=== PATIENT | female | born 1950 | race Caucasian/White ===

== ENCOUNTER 2023-06-11 21:00 | Emergency (ER) | payer MEDICARE, SELFPAY ==
--- NOTE | 2023-06-11 21:00 | RT.EKG_ITS ---
APPROVED REPORT Exam: Resting ECG Reason for Exam: Chest pressure Patient Location: E HR:78 bpm ECG Measurements Heart Rate 78 AXIS NJ 146 P 37 QRSd 69 QRS 51 QT 377 T 43 QTc 421 Conclusion Sinus rhythm..., V-rate 60- 99 Atrial premature complex...SV complex w/ short R-R interval No ST segment or T wave abnormalities to suggest occlusive AK
[2023-06-11 21:07] VITALS: BP 144/76; PULSE 84; RESP 18; TEMP 37; O2SAT 96
--- NOTE | 2023-06-11 21:15 | DI.RAD_ITS ---
Exam(s) XR PORTABLE CHEST AP EXAM: XR PORTABLE CHEST AP CLINICAL HISTORY: chest pain TECHNIQUE: 2D digital imaging was performed of the chest. One image was obtained. An AP view was ob tained. COMPARISON: No exams were available for comparison FINDINGS: MEDIASTINUM: Normal. HEART: Normal. There is a cardiac monitoring device over the left chest wall. PULMONARY VASCULATURE: Normal. LUNGS: The lungs appear hyperinflated. No focal consolidation. PLEURAL SPACE: No pleural effusion or pneumothorax. BONE:Within normal limits for the patient's age. OTHER FINDINGS:There are surgical clips projected over the right lateral chest wall. IMPRESSION: No focal consolidation. DATA REPOSITORY: RADIATION DOSE DELIVERED:
--- NOTE | 2023-06-11 21:24 | ED.GENADUL_ITS ---
Discharge Plan Disposition Condition: Stable Discharge Details Chief Complaint: SOB Clinical Impression: COVID-19, Chest pain Primary Care Provider: Unknown,Unknown ED Provider: Lea Campbell Home Meds and New Rx's Prescriptions: No Action No Known Home Meds Discharge Instructions Instructions: Chest Pain (ED), Viral Syndrome (ED) Additional Instructions: drink 6-8 glasses of water daily to stay well hydrated. continue over the counter medication as directed for symptoms Referrals: Unknown,Unknown [Primary Care Provider] - (follow up with primary care provider) Medical Decision Making Patient presents with symptoms of chest pain/pressure and with upper respiratory symptoms starting Friday. She was COVID-positive. General shows no respiratory distress no coarse breath sounds and oxygen sats of 96% on room air she is afebrile with stable blood pressure and heart rate in the 80s. Will obtain IV access get chest x-ray to rule out pneumonia. Will obtain routine lab including CBC CMP BNP and D-dimer. Her EKG shows no acute ST segment changes. Initial labs are unremarkable with normal white count troponin BNP and age corrected D-dimer. Chest x-ray shows no infiltrates or consolidations. She has remained monitored in the emergency department with room air sats in the high 90s. She was given aspirin 324 mg to chew. Remains hemodynamically stable at this time. Doubt acute coronary syndrome but should repeat troponin in 3 hours. Report and care of patient will be handed off to Dr. Mccord for final diagnosis and disposition. Medical Records Medical records reviewed: Yes I reviewed the patient's medical records. Imaging Data Radiologic Study: Imaging: X-Ray Radiologist's impression: Exam(s) PROCEDURE INFORMATION: Exam: XR Chest Exam date and time: 06/11/2023 21:29 Age: 72 years old Clinical indication: Chest pressure; Patient HX: Chest pain, covid+ TECHNIQUE: Imaging protocol: Radiologic exam of the chest. Views: 1 view. COMPARISON: No relevant prior studies available. FINDINGS: Tubes, catheters and devices: Cardiac monitoring device projects over the left chest wall. Lungs: Mild hyperinflation without airspace consolidation. Pleural spaces: No pleural effusion. No pneumothorax. Heart/Mediastinum: No cardiomegaly. Bones/joints: No acute fracture. Soft tissues: Right chest wall surgical clips. IMPRESSION: Mild hyperinflation without airspace consolidation. Dictated and Authenticated by: Mari Neri MD. Lab Data Lab results reviewed: Yes I reviewed the patient's lab results. Lab results narrative: Laboratory Tests Range/Units 06/11/23 21:28 WBC (4.4-10.8) 10^3/uL 6.99 RBC (3.93-5.22) 10^6/uL 4.53 Hgb (11.2-15.7) g/dL 12.7 Hct (36.0-46.0) % 39.4 MCV (80-95) fL 87 MCH (27.0-33.0) pg 28.0 MCHC (32.0-36.0) % 32.2 RDW (11.7-14.6) % 13.0 Plt Count (130-400) 10^3/uL 265 MPV (8.0-11.0) fL 9.7 Immature Gran % 0.3 Neutrophils % 60.6 Lymphocytes % 20.6 Monocytes % 14.0 Eosinophils % 4.1 Basophils % 0.4 Nucleated RBC % (0.0-0.3) % 0.0 Absolute Neutrophils (1.2-6.7) 10^3/uL 4.23 Absolute Lymphocytes (1.2-3.4) 10^3/uL 1.44 Absolute Monocytes (0.1-0.8) 10^3/uL 0.98 H Absolute Eosinophils (0.0-0.7) 10^3/uL 0.29 Absolute Basophils (0.0-0.2) 10^3/uL 0.03 D-Dimer (<500) ng/mlFEU 647 H Sodium (136-145) mmol/L 137 Potassium (3.5-5.1) mmol/L 3.5 Chloride (98-107) mmol/L 104 Carbon Dioxide (21.0-32.0) mmol/L 29.0 Anion Gap (3-11) mmol/L 4.0 BUN (7-18) mg/dL 20 H Creatinine (0.55-1.02) mg/dL 0.9 Est GFR (CKD-EPI 2020) (mL/min/1.73m2) 67.08 Glucose (74-106) mg/dL 108 H Calcium (8.5-10.1) mg/dL 9.0 Magnesium (1.8-2.4) mg/dL 2.0 Total Bilirubin (0.2-1.0) mg/dL 0.2 AST (15-37) U/L 22 ALT (14-59) U/L 20 Alkaline Phosphatase (46-116) U/L 72 Troponin I (<or=60) ng/L < 50 NT-Pro-B Natriuret Pep (<300) pg/mL 205 Total Protein (6.4-8.2) g/dL 7.0 Albumin (3.4-5.0) g/dL 3.4 HPI General Mode of arrival: ambulatory . Date/Time Provider Initiated Documentation: 06/11/23 21:15 . Limitations to Documentation: no limitations . Information obtained by: patient . HPI Narrative: Presents for evaluation of chest pressure. Started feeling upper respiratory viral infection symptoms Friday has tested positive for COVID states she has had similar symptoms to this in the past has been able to tolerate p.o. No respiratory distress Related Data Home Medications Medication Instructions Recorded Confirmed Unknown [No Known Home Meds] 06/11/23 06/11/23 Allergies Allergy/AdvReac Type Severity Reaction Status Date / Time feline Allergy Intermediate Rhinitis, Uncoded 06/11/23 21:11 sneezing General Stated Complaint: SOB MOOSE: 3 Review of Systems All systems reviewed & are unremarkable except as noted in HPI and below PFSH All Active Problems (Updated 06/11/23 @ 22:20 by Lea Campbell NP) Chest pain (Acute) COVID-19 (Acute) Surgical History Endometrial Biopsy (~2005) NEG Breast, Lumpectomy RIGHT BREAST Family History Mother , polio at age 28. Poliosis Father Heart disease with bypass surgery Sister No problems noted. Grandfather Essential hypertension Grandfather , MVA at age 60. No problems noted. Grandmother Essential hypertension Stroke Grandmother No problems noted. Social History Smoking/Tobacco Use Status: Never Smoking risk assessment performed?: Yes Alcohol Intake: current Alcohol Intake frequency: holidays/special occasions only Substance use type: does not use Do you feel safe at home: Yes Do you feel safe in your relationship?: Yes Exam Const General: cooperative, comfortable, no acute distress and frail appearing Nutritional Appearance: thin Orientation: alert, awake and oriented x3 HENMT Head: normal to inspection, normocephalic and atraumatic Face and sinus: normal facial exam Mouth: moist mucous membranes abnormal (slightly dry) Throat: posterior oropharynx normal Eyes General: appearance normal, both eyes and all related structures Resp Effort & Inspection: normal respiratory effort Auscultation: clear to auscultation bilaterally and diminished lung sounds bilaterally Cardio Rate: regular rate Rhythm: regular rhythm GI Inspection: normal to inspection Palpation: soft Skin General skin exam: dry skin and turgor decreased Lesions: no lesions Neuro General: patient alert, patient awake and patient oriented x3 Extrem General: normal to inspection, full ROM and edema (At baseline) Laterality: bilateral Course Vital Signs Vital signs: Vital Signs Temperature 37.0 C 06/11/23 21:07 Pulse 84 06/11/23 21:07 Respiratory Rate 18 06/11/23 21:07 Blood Pressure 144/76 H 06/11/23 21:07 Pulse Oximetry 96 06/11/23 21:07 Temperature 37.0 C 06/11/23 21:07 Temperature Source Skin 06/11/23 21:07 Pulse 84 06/11/23 21:07 Respiratory Rate 18 06/11/23 21:07 Respiratory Effort Normal 06/11/23 21:10 Blood Pressure 144/76 H 06/11/23 21:07 Blood Pressure Position Sitting 06/11/23 21:07 Pulse Oximetry 96 06/11/23 21:07 Oxygen Delivery Method Room Air 06/11/23 21:07 Oxygen Flow Rate 0 06/11/23 21:07 Sign Out Sign Out Data: Sign Out Comment: COVID-positive patient presents with reports of chest pressure. Initial EKG and troponin are unremarkable. She is oxygenating in the high 90s on room air and is hemodynamically stable. Her chest x-ray with no infiltrates or consolidation. Awaiting delta troponin and repeat EKG at midnight anticipated discharge to home with no medication changes or new medications Last updated by Lea Campbell NP at 06/11/23 22:15
[2023-06-11 21:34] LABS: Abs Immature Grans 0.02 10^3/uL (0.0-0.06); Absolute Basophil Count 0.03 10^3/uL (0.0-0.2); Absolute Eosinophil Count 0.29 10^3/uL (0.0-0.7); Absolute Lymphocyte Count 1.44 10^3/uL (1.2-3.4); Absolute Monocyte Count 0.98 10^3/uL (0.1-0.8); Absolute Neutrophil Count 4.23 10^3/uL (1.2-6.7); Basophils % 0.4; Eosinophils % 4.1; HCT 39.4 % (36.0-46.0); HGB 12.7 g/dL (11.2-15.7); Immature Grans % 0.3; Lymphocytes % 20.6; MCHC 32.2 % (32.0-36.0); MCV 87 fL (80-95); MPV 9.7 fL (8.0-11.0); Neutrophils % 60.6; Platelet Count 265 10^3/uL (130-400); RBC 4.53 10^6/uL (3.93-5.22); RDW-SD 41.2 fL; WBC 6.99 10^3/uL (4.4-10.8)
[2023-06-11 21:53] LABS: ALT 20 U/L (14-59); AST 22 U/L (15-37); Albumin 3.4 g/dL (3.4-5.0); Alkaline Phosphatase 72 U/L (46-116); BUN 20 mg/dL (7-18); Bilirubin, Total 0.2 mg/dL (0.2-1.0); CREATININE 0.9 mg/dL (0.55-1.02); Chloride 104 mmol/L (98-107); Estimated GFR 67.08 (mL/min/1.73m2); Glucose 108 mg/dL (74-106); Potassium 3.5 mmol/L (3.5-5.1); Sodium 137 mmol/L (136-145); Troponin I < 50 ng/L (<or=60)
[2023-06-11 21:57] LABS: NT-proBNP 205 pg/mL (<300)
[2023-06-11] MEDS: Aspirin 81 MG CHEW 324 MG CH (21:57)
--- NOTE | 2023-06-11 22:06 | DI.VRAD_ITS ---
PROCEDURE INFORMATION: Exam: XR Chest Exam date and time: 06/11/2023 21:29 Age: 72 years old Clinical indication: Chest pressure; Patient HX: Chest pain, covid+ TECHNIQUE: Imaging protocol: Radiologic exam of the chest. Views: 1 view. COMPARISON: No relevant prior studies available. FINDINGS: Tubes, catheters and devices: Cardiac monitoring device projects over the left chest wall. Lungs: Mild hyperinflation without airspace consolidation. Pleural spaces: No pleural effusion. No pneumothorax. Heart/Mediastinum: No cardiomegaly. Bones/joints: No acute fracture. Soft tissues: Right chest wall surgical clips. IMPRESSION: Mild hyperinflation without airspace consolidation. Dictated and Authenticated by: Mari Neri MD. Ordering:JORDIN Tate MD
[2023-06-11 22:07] LABS: D-Dimer 647 ng/mlFEU (<500)
[2023-06-12 00:24] LABS: Troponin I < 50 ng/L (<or=60)
--- NOTE | 2023-06-12 01:05 | W.EDPROG ---
Date of service: 06/12/23 Time of Service: 01:08 Medical Decision Making Patient was signed out to me by Lea Cmapbell. Please refer to her HPI, physical exam, assessment and plan. At time of signout we are pending repeat troponin. Repeat troponin has returned and is normal. Patient feels well. Chest x-ray unremarkable. Laboratory work-up otherwise stable. Patient stable for discharge. Symptoms inconsistent with massive PE or ACS. Discussed options of Paxlovid for her COVID treatment. Discussed risks and benefits of medication, as well as risks and benefits of the current timing with her current illness status. Through shared decision-making process patient would like to proceed with Paxlovid treatment. We will give the Paxlovid starter pack year. Patient otherwise stable for discharge. Discussed red flags for which to return. I have extensively reviewed the treatment plan and discharge instructions with the patient. I have addressed all patient concerns at this time. The patient was made aware of what symptoms to monitor for that would warrant a return to the emergency department. Discussed the plan with the patient, they demonstrate verbal understanding and agreement with our assessment and plan at this time. The documentation in this chart was dictated using [employer] dictation software. Please excuse any dictation errors. Sign Out Sign Out Data: Sign Out Comment: COVID-positive patient presents with reports of chest pressure. Initial EKG and troponin are unremarkable. She is oxygenating in the high 90s on room air and is hemodynamically stable. Her chest x-ray with no infiltrates or consolidation. Awaiting delta troponin and repeat EKG at midnight anticipated discharge to home with no medication changes or new medications Last updated by Lea Campbell, VISUAL MERCHANDISING ASSISTANT at 06/11/23 22:15 Discharge Plan Disposition Patient Disposition: Home Condition: Stable Discharge Details Chief Complaint: SOB Clinical Impression: COVID-19, Chest pain Primary Care Provider: Unknown,Unknown ED Provider: Puneet Mccord Home Meds and New Rx's Prescriptions: No Action No Known Home Meds Discharge Instructions Instructions: Chest Pain (ED), Viral Syndrome (ED) Additional Instructions: drink 6-8 glasses of water daily to stay well hydrated. continue over the counter medication as directed for symptoms Please take the Paxlovid as directed. If you notice any worsening of your symptoms, or any new symptoms such as vomiting, diarrhea, fever, chills, shortness of breath, chest pain, numbness, weakness, or fainting , please return immediately to the emergency department for reevaluation. Please follow up with your primary care provider as soon as possible for reassessment and reevaluation. As always, it was a pleasure participating in your medical care today. Referrals: Unknown,Unknown [Primary Care Provider] - (follow up with primary care provider)
[2023-06-12 01:17] VITALS: BP 145/72; PULSE 94; RESP 20; O2SAT 97
== END 2023-06-12 01:17 | disposition home or self-care (01) ==
PROVIDERS: Nurse Practitioner Acute Care; Emergency Provider Student in an Organized Health Care Education/Training Program
DX: R07.89 Other chest pain (principal); R06.02 Shortness of breath; U07.1 COVID-19; I48.91 Unspecified atrial fibrillation; R94.31 Abnormal electrocardiogram [ECG] [EKG]
CPT/HCPCS: 00123; 36415; 80053; 93005; 99283; 71045; 83735; 83880; 84484; 85025; 85379; 93010